=== PATIENT | female | born 1965 | race Caucasian/White ===

== ENCOUNTER → 2023-10-24 10:23 | Outpatient (REF) | payer BC, SELFPAY | LOC: HWWDC 10:23 | PROVIDERS: ATTENDING PHYSICIAN Family Medicine | DX: Z12.31 Encounter for screening mammogram for malignant neoplasm of breast (principal) | CPT/HCPCS: 77063; 77067 ==

== ENCOUNTER 2023-11-15 09:50 | Emergency (ER) | payer BC, SELFPAY ==
[2023-11-15 09:58] VITALS: BP 158/97
--- NOTE | 2023-11-15 10:26 | ED.GENMED ---
History of Present Illness
General
Chief Complaint: Urinary Symptoms
Time Seen by Provider: 11/15/23 10:26
Travel History
Have you had any contact with someone who has COVID-19?: No
Do you have any symptoms of coronavirus? Fever > 100 degrees, chills, cough, shortness of breath, sore throat, loss of taste or smell, muscle aches, or headache?: No
History of Present Illness
History of Present Illness:
HPI: Patient presents with hematuria that started about 8 days ago then developed abdominal pain more so on the right side into her back. She has been on antibiotic for possible UTI and PCP placed on Flomax. The patient denies any UTI symptoms
including any dysuria.
EXAM:
GENERAL: Well appearing in no distress
HEENT: Moist oral mucosa
CARDIOVASCULAR: No murmurs, normal heart rate and rhythm, No chest wall tenderness
PULMONARY: No respiratory distress, breath sounds are clear and equal
ABDOMEN: Soft with no peritoneal signs, no tenderness
BACK: There is right CVA tenderness
NEUROLOGIC: Excellent strength all extremities, no coordination deficits
PSYCHIATRIC: Appropriate mental status, normal insight and judgement
EXTREMITIES: Nontender, no edema, moves all extremities equally
SKIN: No rash, no lesions
ED COURSE:
10:45 AM: I initially evaluated patient
NUMBER AND COMPLEXITY OF PROBLEMS ADDRESSED AT THE ENCOUNTER
� Chronic conditions affecting care: Diabetes
� Acute Exacerbation and/or Progression of Chronic Illness: This is an acute problem
� Differential Diagnosis includes: Hemorrhagic cystitis, UTI less likely as the patient states she had a urinalysis that showed no sign of bacteria/
AMOUNT AND/OR COMPLEXITY OF DATA TO BE REVIEWED AND ANALYZED
� I performed an independent evaluation of and my interpretation is:
EKG:
CT: CT imaging shows a mid right ureteral stone
X-rays:
Laboratory Studies: Urinalysis shows trace leukocyte esterase but no overwhelming sign of infection, less than 2 white cells per high-power field noted. BUN is slightly elevated and glucose is 141 but otherwise chemistries
unremarkable, CBC is normal including normal white count normal hemoglobin.
Other:
� Review of other/old records: Old records show the patient has a history of diabetes and was here with gastric ulcers
� Clinical information was obtained by an independent historian: None needed
� Prescriptions/Medications Considered but not given:
� Further testing considered but not performed:
RISK OF COMPLICATIONS AND/OR MORBIDITY OR MORTALITY OF PATIENT MANAGEMENT
� Social determinants of health affecting care: Lives at home
� Discussion with other providers: I notified Dr. Lassiter who prefers outpatient management. The patient does appear comfortable
� Escalation of care including admission/observation vs risk of discharge considered: The patient is found to have a right-sided ureteral stone measuring 5 mm at the midpoint. The patient appears comfortable after IV Toradol was
given. The patient appears comfortable on reassessment at 1:[address] Lassiter recommendation, the patient was given Flomax and Toradol and I have also gave prescriptions for Zofran and Percocet.
Past History
Past History
ED Past Medical History: Other (Panic attacks)
ED Past Surgical History: Other (Tubal ligation, and back surgery)
Social History
Tobacco: Former smoker
Alcohol: None
Drug: None
Personal:
Living: with family
Employment: Employed
Family History
Family History: Other (Noncontributory)
Phy Exam
Physical Exam
Physical Exam:
See HPI
Course
Orders/Labs/Results
Orders:
Orders
11/15/23 10:35
Complete Blood Count/With Diff Urgent
Comprehensive Metabolic Panel Urgent
Lipase Urgent
Urinalysis Reflex To Culture Urgent
Date Specimen was Collected: 11/15/23
Time Specimen was Collected: 10:33
Urine Microscopic Reflex Cult Urgent
11/15/23 10:45
CT Abd/pel Without Iv Or Oral Urgent
Comment:
Reason For Exam: hematuria; R flank / abd pain
11/15/23 11:04
Ketorolac [Toradol] 15 mg IV NOW STA
11/15/23 12:40
0.9% Sodium Chloride 1000 ml [Nss] 1,000 ml IV BOLUS
Abnormal Lab Results
11/15/23
10:35
Abs Immat Gran (auto) 0.1 H 10^3/uL
(0-0.05)
BUN 26 H mg/dl
(7-17)
Glucose 141 H mg/dl
(70-99)
Leukocyte Esterase Rfl Trace A
(Negative)
11/15/23 10:35
11/15/23 10:35
Vital Signs
Initial and Last Documented VS:
Initial Vital Signs
Temp Pulse Resp BP Pulse Ox
98.3 F 83 20 158/97 99
11/15/23 09:58 11/15/23 09:58 11/15/23 09:58 11/15/23 09:58 11/15/23 09:58
Last Documented Vital Signs
Temp Pulse Resp BP Pulse Ox
98.3 F 63 16 128/75 97
11/15/23 09:58 11/15/23 13:00 11/15/23 13:00 11/15/23 13:00 11/15/23 13:00
*Critical Care Note
Total Time (30-74mins, 75-104mins- exclusive of procedures): Not Applicable
ED Attending Note
-
Portions of this chart may have been created with voice recognition software.� Occasional wrong word or��sound alike� substitutions may have occurred due to the inherent limitations of voice recognition software.
Discharge Plan
Departure
Patient Disposition: Home (Routine Discharge)
Date of Disposition: 11/15/23
Time of Disposition: 13:39
Patient with high blood pressure during this ER visit?: Yes
Discharge Problem:
Right ureteral stone
Instructions: Kidney Stones (DC)
Prescriptions:
New
ketorolac 10 mg tablet
10 mg PO QID PRN (Reason: pain) Qty: 20 0RF
tamsulosin 0.4 mg capsule
0.4 mg PO HS Qty: 20 0RF
oxycodone-acetaminophen 5-325 mg tablet
1 - 2 tab PO Q8H PRN (Reason: Pain) Qty: 14 0RF
ondansetron HCl 4 mg tablet
4 mg PO DAILY PRN (Reason: nausea and vomiting) Qty: 14 0RF
No Action
carisoprodol 350 MG tablet
2 tab PO HS
ascorbic acid (vitamin C) [Vitamin C] 1,000 MG tablet
1,000 mg PO DAILY
gabapentin 300 MG capsule
600 mg PO BID
Magnesium
1 tab PO DAILY
pantoprazole 40 MG tablet,delayed release (DR/EC)
40 mg PO BID Qty: 60 3RF
Rx Instructions:
please use twice a day for 6 weeks then daily. Take 30 minutes before a meal
Referrals:
Vini Rodriguez MD [Family Provider] -
Eduardo Lassiter MD [Active] - Follow up in 2-3 days
Activity Restrictions/Additional Instructions:
There is no sign of infection on the urinalysis and no blood noted currently. We do see a 5 mm stone at the midpoint of the right ureter. I spoke to one of the urologist�we have prescribed more Flomax (tamsulosin) and he also wanted to try
Toradol. I sent prescriptions for these to your pharmacy. I would like you to call his office to arrange follow-up. You should strain your urine as well.
Interventions
Interventions:
*Risk Screen - Suicide Last Done: 11/15/23 09:58
*General Assessment Last Done: 11/15/23 09:58
*Neglect/Abuse Screening Last Done: 11/15/23 09:58
*ED COVID-19 Vaccine History Last Done: 11/15/23 10:43
ED-Female Genitourinary Assessment Last Done: 11/15/23 10:44
Discharge Date and Time
Discharge Date/Time: 11/15/23 13:53
[2023-11-15 10:46] LABS: % Basophils 0.5 % (0-2); % Eosinophils 3.1 % (0-6); % Immature Granulocytes 0.5 % (0-0.5); % Lymphocytes 27.1 % (20.5-51.1); % Monocytes 6.2 % (1.7-9.3); % Neutrophils 62.6 % (42.2-75.2); Absolute Basophils 0.1 10^3/uL (0-0.2); Absolute Eosinophils 0.3 10^3/uL (0-0.7); Absolute Immature Granulocytes 0.1 10^3/uL (0-0.05); Absolute Lymphocytes 2.8 10^3/uL (1.2-3.4); Absolute Monocytes 0.6 10^3/uL (0.1-0.6); Absolute Neutrophils 6.4 10^3/uL (1.4-6.5); Hematocrit 38.1 % (37.0-47.0); Mean Corp Hgb Conc. 34.1 g/dL (33.0-37.0); Mean Corpuscular Hgb 29.7 pg (27.0-31.0); Mean Corpuscular Volume 87.2 fL (81.0-99.0); Mean Platelet Volume 10.1 fL (7.4-10.4); Nucleated Red Blood Cells % 0 %; Platelet Count 273 10^3/uL (130-400); Red Blood Cell Count 4.37 10^6/uL (4.20-5.40); Red Cell Dist. Width 12.2 % (11.5-14.5); White Blood Cell Count 10.2 10^3/uL (4.8-10.8)
[2023-11-15 10:47] LABS: Urine Albumin Negative (Neg - Trace); Urine Bilirubin Negative (Negative); Urine Character Clear (Clear); Urine Color Yellow; Urine Glucose Negative (Negative); Urine Ketone Negative (Negative); Urine Leukocyte Trace (Negative); Urine Nitrite Negative (Negative); Urine Occult Blood Negative (Negative); Urine Specific Gravity 1.015 (<1.030); Urine Urobilinogen Negative (Neg - 1+)
[2023-11-15 10:56] LABS: Urine Red Blood Cell None Seen /HPF (0-2); Urine Squamous Cell 0-2 /LPF (Few); Urine White Cell 0-2 /HPF (0-5)
[2023-11-15 11:02] LABS: ALT (SGPT) 23 U/L (0-35); AST (SGOT) 21 U/L (14-36); Albumin 4.3 g/dl (3.5-5.0); Alkaline Phosphatase 93 U/L (38-126); Blood Urea Nitrogen 26 mg/dl (7-17); Calcium 9.3 mg/dl (8.4-10.2); Carbon Dioxide 28 mmol/L (22-30); Chloride 106 mmol/L (98-107); Glucose 141 mg/dl (70-99); Lipase 183 U/L (23-300); Potassium 4.7 mmol/L (3.5-5.1); Sodium 138 mmol/L (135-145); Total Bilirubin 0.3 mg/dl (0.2-1.3); Total Protein 6.8 g/dl (6.3-8.2); eGFR > 60.00
[2023-11-15 11:04] VITALS: BP 118/83
[2023-11-15] MEDS: TORADOL 15 MG IV (11:06)
[2023-11-15] MEDS: NSS 1000 IV (12:59)
[2023-11-15 13:00] VITALS: BP 128/75
== END 2023-11-15 13:53 | disposition home or self-care (01) ==
LOC: EMR 09:50
PROVIDERS: EMERGENCY PHYSICIAN Emergency Medicine; FAMILY PHYSICIAN Family Medicine
DX: N13.2 Hydronephrosis with renal and ureteral calculous obstruction (principal); E11.9 Type 2 diabetes mellitus without complications; Z87.891 Personal history of nicotine dependence; R03.0 Elevated blood-pressure reading, without diagnosis of hypertension
CPT/HCPCS: 99284; 96374; 96361; 74176; 80053; 81003; 81015; 83690; 85025

== ENCOUNTER 2025-03-21 06:28 | Day surgery (SDC) | payer BC, SELFPAY ==
[2025-03-21 12:15] VITALS: BMI 22.9
[2025-03-21 12:16] VITALS: BP 127/80; BMI 22.9
[2025-03-21 15:30] VITALS: BP 109/63
[2025-03-21 15:45] VITALS: BP 112/80
[2025-03-21 16:00] VITALS: BP 113/98
== END 2025-03-21 16:06 | disposition home or self-care (01) ==
LOC: GI 06:28
PROVIDERS: ATTENDING PHYSICIAN Internal Medicine Gastroenterology
DX: Z12.11 Encounter for screening for malignant neoplasm of colon (principal); D12.8 Benign neoplasm of rectum; K64.0 First degree hemorrhoids; Z86.0100 Personal history of colon polyps, unspecified; Z87.19 Personal history of other diseases of the digestive system
CPT/HCPCS: 45385; 43239; 88305